=== PATIENT | female | born 1980 | race Caucasian/White ===

== ENCOUNTER 2017-07-29 18:47 | Emergency (ER) | payer SELFPAY ==
[2017-07-29 19:45] LABS: Urine Blood NEGATIVE (NEG); Urine Glucose NEGATIVE (NEG); Urine Protein NEGATIVE (NEG)
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
[2017-07-29 21:14] VITALS: BP 129/87; TEMP 97.6; O2SAT 100
== END 2017-07-29 20:40 | disposition home or self-care (01) ==
LOC: ER 18:47
DX: M54.2 Cervicalgia (principal); V49.49XA Driver injured in collision with other motor vehicles in traffic accident, initial encounter; Z88.6 Allergy status to analgesic agent
CPT/HCPCS: 72125; 81003; 81025; 99284

== ENCOUNTER 2024-05-04 12:32 | Emergency (ER) | payer OTHER ==
--- OUTSIDE RECORDS SUMMARY | 2024-05-04 12:38 | XMS REPORT | Continuity of Care Document ---
Author Name Unknown Address [address] [facility] [address] [place] [address] [facility] thconnect Address [address] [facility] [address] [place] [address] Care Team Providers Care Wringer And Setter Name Role Phone Mary Davey MD Primary Care Physician [phone] MARY DAVEY Attending Clinician Unavailable MARY DAVEY Attending Clinician Unavailable Mary Davey MD Attending Clinician [phone] Cory Garcia MD Attending Clinician [phone] [facility] Attending Clinician Unavailable ANABEL RICHEY Attending Clinician Unavailable Anabel Richey DNP Attending Clinician [phone] Serena Pulido Attending Clinician Unavailabl MARLEE Uribe Attending Clinician Unavailable MARLEE MEADOWS Attending Clinician Unavailable MARLEE MEADOWS Attending Clinician Unavailable Ultrasound, [facility] Attending Clinician UnavailMarlee Cotton MD Attending Clinician [phone] , [facility] Attending Clinician Unavailable ELHAM DIAS Attending Clinician UnaElham Mcarthur MD Attending Clinician + [phone], [facility] Attending Clinician Unavailable Doctor Unassigned, Badger Lee Attending Clinician U GIAN Ca Attending Clinician GIAN Santana Attending Clinician [facility] Hunter Attending Clinician Unavailable Peterson SIFUENTES, Lb Attending Clinician [phone] Hailey Pina MD Attending Clinician [phone] Cory Garcia MD Attending Clinician [phone] 1, [facility] Attending Clinician Unavailab Matt Mckeon MD Attending Clinician [phone] MATT LAU Attending Clinician Unavailable Pob, [facility] Main Attending Clinician UnavailISAI Moreno Attending Clinician Unavail able Only, [facility] Test Attending Clinician UnavailIsai Herrera DO Attending Clinician [phone] Jackeline RN, Imani Barron Attending Clinician Unavailable Whitley Huerta Attending Clinician [phone] WHITLEY TRUJILLO Attending Clinician Unavailable MARY DAVEY Admitting Clinician Unavailable Mary Davey MD Admitting Clinician [phone] MARY DAVEY Admitting Clinician Unavailable Payers Payer Name Policy Type Policy Number Effective Date Expirati on Date Source [place] [employer] [id number] 2022 00:00:00 Problems Condition Name Condition Details Condition Category Status Onset Date Resolution Date Last Treatment Date Treating Clinician Comments Source Liveborn infant, of [place] , born in hospital by delivery Liveborn , of [place] , born in hospital by delivery Disease Active 2023-03 0-15 00:00: 00 [facility] Status post tubal ligation Status post tubal ligation Disease Active 12-02 00:00: 00 [facility] Depression affecting in third trimester, antepartum Depression affecting in third trimester, antepartum Disease Active 12-02 00:00: 00 [facility] Anemia Anemia Disease Active 12-02 00:00: 00 [facility] Pelvic pain affecting in third trimester, antepartum Pelvic pain affecting in third trimester, antepartum Disease Active 12-02 00:00: 00 [facility] Polyhydram nios, antepartum , single or unspecifie d fetus Polyhydram nios, antepartum , single or unspecifie d fetus Disease Active 10-29 00:00: 00 Last Assessmen t & Plan: Formattin g of this note might be different from the original. Resolved on 10/2023 ultrasoun d [facility] Excessive growth affecting , antepartum , single or unspecifie d fetus Excessive growth affecting , antepartum , single or unspecifie d fetus Disease Active 10-29 00:00: 00 [facility] Advanced maternal age, primigravi da, antepartum Advanced maternal age, primigravi da, antepartum Disease Active 3-04 00:00: 00 [facility] 39 weeks gestation of 39 weeks gestation of Disease Active 4- 00:00: 00 [facility] Current mild episode of major depressive disorder without prior episode Current mild episode of major depressive disorder without prior episode Disease Active 2020-03 0-06 00:00: 00 [facility] High-risk in third trimester High-risk in third trimester Disease Active 2020-03 0-06 00:00: 00 [facility] 34 weeks gestation of 34 weeks gestation of Disease Resolve d 9-12 00:00: 00 2023-12-11 00:00:00 2023-12-11 13:45:29 [facility] Abdominal tightness Abdominal tightness Disease Resolve d 9-12 00:00: 00 2023-12-03 00:00:00 2023-12-03 12:21:08 [facility] Irregular contractio ns Irregular contractio ns Disease Resolve d 0 9-12 00:00: 00 2023-12-03 00:00:00 2023-12-03 12:21:51 [facility] Shortness of breath Shortness of breath Disease Resolve d 2-23 00:00: 00 2023-05-25 00:00:00 2023-05-25 15:50:37 [facility] Normal labor Normal labor Disease Active 2022-0 4-22 00:00: 00 2021-10-16 00:00:00 2021-10-16 11:34:07 [facility] Full-term premature rupture of membranes with onset of labor within 24 hours of rupture Full-term premature rupture of membranes with onset of labor within 24 hours of rupture Disease Resolve d 2021-0 4-22 00:00: 00 2021-10-16 00:00:00 2021-10-16 11:34:10 [facility] 38 weeks gestation of 38 weeks gestation of Disease Resolve d 2021-0 4-22 00:00: 00 2021-10-16 00:00:00 2021-10-16 11:34:11 [facility] Elevated BP without diagnosis of hypertensi on Elevated BP without diagnosis of hypertensi on Disease Resolve d 2021-0 4-22 00:00: 00 2021-10-16 00:00:00 2021-10-16 11:34:13 [facility] Liveborn , of cas[place] , born in hospital by vaginal delivery Liveborn infant, of [place] , born in hospital by vaginal delivery Disease Resolve d 2021-0 4-22 00:00: 00 2021-10-16 00:00:00 2021-10-16 11:34:14 [facility] Anemia of mother in , antepartum Anemia of mother in , antepartum Disease Resolve d 2021-0 3-21 00:00: 00 2021-10-16 00:00:00 2021-10-16 11:34:06 [facility] History of macrosomia in in prior , currently History of macrosomia in in prior , currently Disease Resolve d 2020-1 0-06 00:00: 00 2021-10-16 00:00:00 2021-10-16 11:34:03 [facility] Allergies, Adverse Reactions, Alerts Allergy Name Allergy Type Status Severity Reaction(s) Onset Date Inactive Date Treating Clinician Comments Source NO KNOWN ALLERGIE S Drug Class Active [facility] Social History Social Habit Start Date Stop Date Quantity Comments Source ASSERTION 2023-04-18 00:00:00 [facility] History SDOH Alcohol Frequency [facility] History SDOH Alcohol Std Drinks [facility] History SDOH Alcohol Binge [facility] History of tobacco use Current smoker [facility] Sexual orientation [facility] Alcoholic beverage intake 2024-01-13 00:00:00 2024-01-13 00:00:00 Ex-drinker (finding) [facility] History of Social function 2023-11-13 00:00:00 2023-11-13 00:00:00 [facility] Tobacco use and exposure 2023-05-25 00:00:00 2023-05-25 00:00:00 Smokeless tobacco non-user [facility] Alcohol intake 2023-05-25 00:00:00 2023-05-25 00:00:00 Ex-drinker (finding) [facility] Exposure to SARS-CoV-2 (event) 2021-10-06 00:00:00 2021-10-16 11:16:00 Not sure [facility] Alcohol Comment 2020-12-25 00:00:00 2020-12-25 00:00:00 history of rehab [facility] Sex assigned at 1980 00:00:00 1980 00:00:00 [facility] Smoking Status Start Date Stop Date Source Ex-smoker 2023-05-25 00:00:00 2023-05-25 00:00:00 [facility] Medications Ordered Medication Name Filled Medication Name Start Date Stop Date Current Medication? Ordering Clinician Indication Dosage Frequency Signature (SIG) Comments Components Source ibuprofen (IBU) tablet 600 mg 2023-03 05:00: 00 Yes 600mg [facility] docusate (COLACE) capsule 200 mg 2023-03 0 14:00: 00 Yes 200mg 200 mg, Oral, DAILY, First dose on Thu01/05/24 at 0900, Until Discontinu ed, Routine [facility] citalopram (CELEXA) tablet 20 mg 2023-03 14:00: 00 Yes 20mg 20 mg, Oral, DAILY, First dose on Thu01/05/24 at 0900, Until Discontinu ed, Routine [facility] ketorolac (TORADOL) injection 30 mg 2023-03 05:00: 00 01-05 04:59 :00 No 30mg 30 mg, Slow IV Push, Q6H ABX, 4 doses, First dose on Thu01/05/24 at 0000, Last dose on Thu01/05/24 at 1800, Routine [facility] diphenhydrA MINE (BENADRYL) tablet 25 mg 2023-03 03:15: 00 01-04 04:03 :00 No 25mg 25 mg, Oral, ONCE, 1 dose, On Thu01/04/24 at 2215, Routine [facility] vitamin w/FA tablet 2023-03 00:00: 00 Yes [id number] 1{tbl} Take 1 tablet by mouth in the morning. [facility] docusate 100 mg capsule 2023-03 00:00: 00 Yes [id number] 200mg Take 2 capsules by mouth once daily as needed for Constipati on. [facility] ferrous sulfate 325 mg (65 mg iron) tablet 2023-03 00:00: 00 Yes [id number] 325mg Take 1 tablet by mouth in the morning. [facility] ibuprofen 800 mg tablet 2023-03 00:00: 00 Yes [id number] 800mg Take 1 tablet by mouth every 8 (eight) hours as needed (pain). Take with food or milk. [facility] acetaminoph en 500 mg tablet 2023-03 00:00: 00 Yes [id number] 1000mg Take 2 tablets by mouth every 8 (eight) hours as needed for Pain. [facility] oxyCODONE 5 mg immediate release tablet 2023-03 00:00: 00 01-12 04:59 :00 No [id number] 5mg Take 1 tablet by mouth every 6 (six) hours as needed (pain) for up to 7 days. Indication s: acute pain [facility] gabapentin 300 mg capsule 2023-03 00:00: 00 2024- 10-21 04:59 :00 No [id number] 300mg Take 1 capsule by mouth in the morning and 1 capsule at noon and 1 capsule in the evening. Do all this for 5 days. [facility] acetaminoph en (TYLENOL) tablet 1,000 mg 2023-03 21:00: 00 Yes 1000mg 1,000 mg, Oral, Q8H ABX, First dose on Thu01/04/24 at 1600, Until Discontinu ed, Routine [facility] gabapentin (NEURONTIN) capsule 300 mg 2023-03 19:00: 00 Yes 300mg 300 mg, Oral, TID, First dose on Thu01/04/24 at 1400, Until Discontinu ed, Routine [facility] simethicone (GAS RELIEF (SIMETHICON E)) chewable tablet 160 mg 2023-03 19:00: 00 Yes 160mg 160 mg, Oral, TID, First dose on Thu01/04/24 at 1400, Until Discontinu ed, Routine [facility] lactated ringers IV infusion 1,000 mL 2023-03 18:30: 00 01-03 19:55 :03 No 1000mL at 125 mL/hr, 1,000 mL, IV Infusion, ONCE, 1 dose, On Thu01/04/24 at 1330, Routine [facility] rho(D) immune globulin (RHOPHYLAC) injection 300 mcg 2023-03 18:16: 31 Yes 300ug [facility] oxyCODONE immediate release tablet 5 mg 2023-03 18:16: 26 Yes 5mg [facility] diphenhydrA MINE (BENADRYL) injection 25 mg 2023-03 18:16: 26 Yes 25mg [facility] diphenhydrA MINE (BENADRYL) tablet 25 mg 2023-03 18:16: 26 Yes 25mg [facility] ondansetron (ZOFRAN (PF)) injection 4 mg 2023-03 18:16: 26 Yes 4mg [facility] bisacodyL (DULCOLAX) suppository 10 mg 2023-03 18:16: 26 Yes 10mg [facility] magnesium hydroxide (MILK OF MAGNESIA) 400 mg/5 mL suspension 30 mL 2023-03 18:16: 26 Yes 30mL [facility] lactated ringers IV infusion 1,000 mL 2023-03 18:16: 26 Yes 1000mL [facility] naloxone (NARCAN) injection 0.4 mg 2023-03 18:16: 12 01-05 18:15 :12 No .4mg 0.4 mg, Slow IV Push, PRN - SEE INSTRUCTIO NS, Starting on Thu01/04/24 at 1316, Until Thu01/06/24 at 1315, Routine, Sedation/R espiratory Depression , Analgesia recovery, PACU [facility] diphenhydrA MINE (BENADRYL) injection 25 mg 2023-03 18:16: 12 01-04 18:15 :12 No 25mg 25 mg, Slow IV Push, Q4HPRN, Starting on Thu01/04/24 at 1316, Until Thu01/05/24 at 1315, Routine, Itching, PACU [facility] sodium chloride 0.9 % irrigation solution 2023-03 14:40: 00 Yes PRN, Starting on Thu01/04/24 at 0940, Until Discontinu ed, Intra-op [facility] oxytocin (PITOCIN) 30 units in NS 500 mL IV infusion 2023-03 14:00: 23 01-03 18:14 :49 No 300mL/h 300 mL/hr, IV Infusion, SEE-INSTRU CTIONS, Starting on Thu01/04/24 at 0900, Start at 300 mL/hr for 1 hr then 150 mL/hr for 1 hr. For post delivery uterotonic . [facility] mupirocin (BACTROBAN OINT) 2 % oinintment 2023-03 13:32: 00 01-03 18:14 :49 No [facility] oxytocin (PITOCIN) 30 units in NS 500 mL IV infusion 2023-03 02:12: 46 01-03 18:14 :49 No 2mU/min at 2-40 mL/hr, IV Infusion, TITRATE, Starting on 01/03/24 at 2112, Until Thu01/04/24 at 1314, ELEANOR [facility] D5W-LR IV infusion 1,000 mL 2023-0314 02:12: 46 01-03 18:14 :49 No 1000mL at 1-125 mL/hr, IV Infusion, TITRATE, Starting on 01/03/24 at 2112, Until 01/04/24 at 1314, Routine [facility] ondansetron (ZOFRAN) 4 mg tablet 12-10 00:00: 00 01-04 00:00 :00 No [id number] 4mg Take 1 tablet by mouth every 8 (eight) hours as needed for Nausea and Vomiting (N/V). [facility] lactated ringers IV infusion 1,000 mL 12-02 18:00: 00 12-02 17:38 :00 No 1000mL at 999 mL/hr, 1,000 mL, Intravenou s, ONCE, 1 dose, On [facility] 12/03/23 at 1300, Routine [facility] acetaminoph en (TYLENOL) tablet 1,000 mg 12-02 18:00: 00 12-02 17:44 :00 No 1000mg 1,000 mg, Oral, ONCE, 1 dose, On [facility] 12/03/23 at 1300, Routine [facility] ferrous sulfate 325 mg (65 mg iron) tablet 10-07 00:00: 00 01-04 00:00 :00 No [id number] 325mg Take 1 tablet by mouth in the morning and 1 tablet in the evening. [facility] citalopram (CELEXA) 20 mg tablet 09-20 13:47: 52 09-20 00:00 :00 No 20mg Take 1 tablet by mouth in the morning. [facility] citalopram (CELEXA) 20 mg tablet 09-20 00:00: 00 01-04 00:00 :00 No [id number] 20mg Take 1 tablet by mouth in the morning. [facility] aspirin 81 mg EC tablet -08 00:00: 00 01-04 00:00 :00 No [id number] 81mg Take 1 tablet by mouth in the morning. [facility] citalopram (CELEXA) 20 mg tablet 3-04 14:20: 49 Yes 20mg Take 1 tablet by mouth in the morning. [facility] NUVARING 0.12-0.015 mg/24 hr vaginal insert 7- 00:00: 00 05-24 00:00 :00 No [id number] 1{each} Insert 1 Each into vagina once every month. Insert vaginally and leave in place for 3 consecutiv e weeks, then remove for 1 week. [facility] citalopram (CELEXA) 20 mg tablet -24 13:50: 40 Yes 20mg Take 20 mg by mouth daily. [facility] ascorbic acid, vitamin C, 500 mg tablet -24 00:00: 00 10-07 00:00 :00 No [id number] 102 500mg Take 1 tablet by mouth 2 (two) times daily. [facility] ibuprofen 600 mg tablet 4-24 00:00: 00 05-24 00:00 :00 No [id number] 102 600mg Take 1 tablet by mouth every 6 (six) hours as needed (Pain). Take with food or milk. [facility] ferrous sulfate 325 mg (65 mg iron) tablet 2-24 00:00: 00 10-07 00:00 :00 No [id number] 325mg Take 1 tablet by mouth 2 (two) times daily. [facility] PNV 102-iron-fo late-dha (VITAFOL FE PLUS) 90 mg iron- 1 mg-200 mg Cap 2020-03 0-06 00:00: 00 Yes [id number] Take 1 TAB-CAP/M2 by mouth daily. [facility] PNV 102-iron-fo late-dha (VITAFOL FE PLUS) 90 mg iron- 1 mg-200 mg Cap 2020-03 0-06 00:00: 00 05-24 00:00 :00 No [id number] Take 1 TAB-CAP/M2 by mouth daily. [facility] Immunizations Ordered Immunization Name Filled Immunization Name Date Status Comments Source RSV, Bivalent Protein Subunit RSVprdF 2023-12-11 00:00:00 Completed [facility] RSV, Bivalent Protein Subunit RSVprdF 2023-12-11 00:00:00 Completed [facility] TDAP 2023-10-30 00:00:00 Completed [facility] TDAP 2023-10-30 00:00:00 Completed [facility] Influenza Virus Vaccine Quad IM, Preserv and ABX Free 6 MO-64 YRS (FLUCELVAX) 2023-05-25 00:00:00 Completed [facility] Influenza Virus Vaccine Quad IM, Preserv and ABX Free 6 MO-64 YRS (FLUCELVAX) 2023-05-25 00:00:00 Completed [facility] TDAP 2021-06-10 00:00:00 Completed [facility] TDAP 2021-06-10 00:00:00 Completed [facility] TDAP 2021-06-10 00:00:00 Completed [facility] TDAP 2021-06-10 00:00:00 Completed [facility] TDAP Unknown Completed [facility] TDAP Unknown Completed [facility] Influenza Virus Vaccine Quad IM, Preserv and ABX Free 6 MO-64 YRS (FLUCELVAX) Unknown Completed [facility] TDAP Unknown Completed [facility] Influenza Virus Vaccine Quad IM, Preserv and ABX Free 6 MO-64 YRS (FLUCELVAX) Unknown Completed [facility] TDAP Unknown Completed [facility] Influenza Virus Vaccine Quad IM, Preserv and ABX Free 6 MO-64 YRS (FLUCELVAX) Unknown Completed [facility] TDAP Unknown Completed [facility] Influenza Virus Vaccine Quad IM, Preserv and ABX Free 6 MO-64 YRS (FLUCELVAX) Unknown Completed [facility] TDAP Unknown Completed [facility] Influenza Virus Vaccine Quad IM, Preserv and ABX Free 6 MO-64 YRS (FLUCELVAX) Unknown Completed [facility] TDAP Unknown Completed [facility] Influenza Virus Vaccine Quad IM, Preserv and ABX Free 6 MO-64 YRS (FLUCELVAX) Unknown Completed [facility] TDAP Unknown Completed [facility] Influenza Virus Vaccine Quad IM, Preserv and ABX Free 6 MO-64 YRS (FLUCELVAX) Unknown Completed [facility] RSV, Bivalent Protein Subunit RSVprdF Unknown Completed [facility] TDAP Unknown Completed [facility] Influenza Virus Vaccine Quad IM, Preserv and ABX Free 6 MO-64 YRS (FLUCELVAX) Unknown Completed [facility] RSV, Bivalent Protein Subunit RSVprdF Unknown Completed [facility] TDAP Unknown Completed [facility] TDAP Unknown Completed [facility] TDAP Unknown Completed [facility] Influenza Virus Vaccine Quad IM, Preserv and ABX Free 6 MO-64 YRS (FLUCELVAX) Unknown Completed [facility] TDAP Unknown Completed [facility] Influenza Virus Vaccine Quad IM, Preserv and ABX Free 6 MO-64 YRS (FLUCELVAX) Unknown Completed [facility] TDAP Unknown Completed [facility] Influenza Virus Vaccine Quad IM, Preserv and ABX Free 6 MO-64 YRS (FLUCELVAX) Unknown Completed [facility] TDAP Unknown Completed [facility] Influenza Virus Vaccine Quad IM, Preserv and ABX Free 6 MO-64 YRS (FLUCELVAX) Unknown Completed [facility] TDAP Unknown Completed [facility] Influenza Virus Vaccine Quad IM, Preserv and ABX Free 6 MO-64 YRS (FLUCELVAX) Unknown Completed [facility] TDAP Unknown Completed [facility] Influenza Virus Vaccine Quad IM, Preserv and ABX Free 6 MO-64 YRS (FLUCELVAX) Unknown Completed [facility] TDAP Unknown Completed [facility] Influenza Virus Vaccine Quad IM, Preserv and ABX Free 6 MO-64 YRS (FLUCELVAX) Unknown Completed [facility] TDAP Unknown Completed [facility] Influenza Virus Vaccine Quad IM, Preserv and ABX Free 6 MO-64 YRS (FLUCELVAX) Unknown Completed [facility] TDAP Unknown Completed [facility] Influenza Virus Vaccine Quad IM, Preserv and ABX Free 6 MO-64 YRS (FLUCELVAX) Unknown Completed [facility] TDAP Unknown Completed [facility] Influenza Virus Vaccine Quad IM, Preserv and ABX Free 6 MO-64 YRS (FLUCELVAX) Unknown Completed [facility] TDAP Unknown Completed [facility] Influenza Virus Vaccine Quad IM, Preserv and ABX Free 6 MO-64 YRS (FLUCELVAX) Unknown Completed [facility] Influenza Virus Vaccine Quad IM, Preserv and ABX Free 6 MO-64 YRS (FLUCELVAX) Unknown Completed [facility] Vital Signs Vital Name Observation Time Observation Value Comments S ource Systolic blood pressure 2024-01-13 16:04:00 124 mm[Hg] [facility] Diastolic blood pressure 2024-01-13 16:04:00 84 mm[Hg] [facility] Heart rate 2024-01-13 16:04:00 80 /min [facility] Body temperature 2024-01-13 16:04:00 36.39 Erika [facility] Body height 2024-01-13 16:04:00 172.7 cm [facility] Body weight 2024-01-13 16:04:00 70.126 kg [facility] BMI 2024-01-13 16:04:00 23.51 kg/m2 [facility] Systolic blood pressure 2024-01-05 16:59:00 118 mm[Hg] [facility] Diastolic blood pressure 2024-01-05 16:59:00 72 mm[Hg] [facility] Heart rate 2024-01-05 16:59:00 79 /min [facility] Body temperature 2024-01-05 16:59:00 36.67 Erika [facility] Respiratory rate 2024-01-05 16:59:00 18 /min [facility] Oxygen saturation in Arterial blood by Pulse oximetry 2024-01-05 11:47:00 98 /min [facility] Body height 2024-01-04 02:28:00 172.7 cm [facility] Body weight 2024-01-04 02:28:00 80.287 kg [facility] BMI 2024-01-04 02:28:00 26.91 kg/m2 [facility] Systolic blood pressure 2024-01-05 04:58:00 125 mm[Hg] [facility] Diastolic blood pressure 2024-01-05 04:58:00 84 mm[Hg] [facility] Heart rate 2024-01-05 04:58:00 100 /min [facility] Body temperature 2024-01-05 04:58:00 37.06 Erika [facility] Respiratory rate 2024-01-05 04:58:00 18 /min [facility] Oxygen saturation in Arterial blood by Pulse oximetry 2024-01-05 04:58:00 94 /min [facility] Body height 2024-01-04 02:28:00 172.7 cm [facility] Body weight 2024-01-04 02:28:00 80.287 kg [facility] BMI 2024-01-04 02:28:00 26.91 kg/m2 [facility] Systolic blood pressure 2023-12-28 14:18:00 119 mm[Hg] [facility] Diastolic blood pressure 2023-12-28 14:18:00 74 mm[Hg] [facility] Heart rate 2023-12-28 14:18:00 87 /[facility] 2023-12-28 14:18:00 18 /min [facility] Body height 2023-12-28 14:18:00 172.7 cm [facility] Body weight 2023-12-28 14:18:00 80.74 kg [facility] BMI 2023-12-28 14:18:00 27.06 kg/m2 [facility] Systolic blood pressure 2023-12-21 16:01:00 109 mm[Hg] [facility] Diastolic blood pressure 2023-12-21 16:01:00 74 mm[Hg] [facility] Heart rate 2023-12-21 16:01:00 102 /min [facility] Respiratory rate 2023-12-21 16:01:00 18 /min [facility] Body height 2023-12-21 16:01:00 172.7 cm [facility] Body weight 2023-12-21 16:01:00 80.287 kg [facility] BMI 2023-12-21 16:01:00 26.91 kg/m2 [facility] Systolic blood pressure 2023-12-14 16:20:00 130 mm[Hg] [facility] Diastolic blood pressure 2023-12-14 16:20:00 88 mm[Hg] [facility] Heart rate 2023-12-14 16:20:00 86 /min [facility] Body temperature 2023-12-14 16:20:00 36.67 Erika [facility] Respiratory rate 2023-12-14 16:20:00 18 /min [facility] Body height 2023-12-14 16:20:00 172.7 cm [facility] Body weight 2023-12-14 16:20:00 81.375 kg [facility] BMI 2023-12-14 16:20:00 27.28 kg/m2 [facility] Oxygen saturation in Arterial blood by Pulse oximetry 2023-12-14 16:20:00 100 /min [facility] Systolic blood pressure 2023-12-11 16:56:00 120 mm[Hg] [facility] Diastolic blood pressure 2023-12-11 16:56:00 72 mm[Hg] [facility] Heart rate 2023-12-11 16:56:00 100 /min [facility] Body temperature 2023-12-11 16:56:00 36.44 Erika [facility] Body height 2023-12-11 16:56:00 172.7 cm [facility] Body weight 2023-12-11 16:56:00 80.468 kg [facility] BMI 2023-12-11 16:56:00 26.97 kg/m2 [facility] Heart rate 2023-12-03 18:00:00 76 /min Unive [facility] Oxygen saturation in Arterial blood by Pulse oximetry 2023-12-03 18:00:00 99 /min [facility] Systolic blood pressure 2023-12-03 15:54:00 110 mm[Hg] [facility] Diastolic blood pressure 2023-12-03 15:54:00 75 mm[Hg] [facility] Respiratory rate 2023-12-03 15:54:00 18 /min [facility] Body height 2023-12-03 15:54:00 172.7 cm [facility] Body weight 2023-12-03 15:54:00 79.833 kg [facility] BMI 2023-12-03 15:54:00 26.76 kg/m2 [facility] Systolic blood pressure 2023-11-27 18:07:00 118 mm[Hg] [facility] Diastolic blood pressure 2023-11-27 18:07:00 70 mm[Hg] [facility] Heart rate 2023-11-27 18:07:00 95 /min Unive [facility] Body temperature 2023-11-27 18:07:00 36.44 Erika [facility] Body weight 2023-11-27 18:07:00 80.196 kg [facility] BMI 2023-11-27 18:07:00 26.88 kg/m2 [facility] Systolic blood pressure 2023-11-13 15:18:00 99 mm[Hg] [facility] Diastolic blood pressure 2023-11-13 15:18:00 68 mm[Hg] [facility] Heart rate 2023-11-13 15:18:00 97 /min Unive [facility] Body temperature 2023-11-13 15:18:00 36.72 Erika [facility] Respiratory rate 2023-11-13 15:18:00 18 /min [facility] Body height 2023-11-13 15:18:00 172.7 cm [facility] Body weight 2023-11-13 15:18:00 79.379 kg [facility] BMI 2023-11-13 15:18:00 26.61 kg/m2 [facility] Systolic blood pressure 2023-10-30 18:18:00 124 mm[Hg] [facility] Diastolic blood pressure 2023-10-30 18:18:00 76 mm[Hg] [facility] Heart rate 2023-10-30 18:18:00 106 /min [facility] 2023-10-30 18:18:00 18 /min [facility] Body weight 2023-10-30 18:18:00 80.105 kg [facility] BMI 2023-10-30 18:18:00 26.85 kg/m2 [facility] Systolic blood pressure 2023-09-21 17:58:00 99 mm[Hg] [facility] Diastolic blood pressure 2023-09-21 17:58:00 66 mm[Hg] [facility] Heart rate 2023-09-21 17:58:00 101 /min Unive [facility] Respiratory rate 2023-09-21 17:58:00 18 /min [facility] Body weight 2023-09-21 17:58:00 79.47 kg [facility] BMI 2023-09-21 17:58:00 26.64 kg/m2 [facility] Systolic blood pressure 2023-05-25 20:06:00 121 mm[Hg] [facility] Diastolic blood pressure 2023-05-25 20:06:00 79 mm[Hg] [facility] Heart rate 2023-05-25 20:06:00 90 /min Unive [facility] Body temperature 2023-05-25 20:06:00 36.89 Erika [facility] Respiratory rate 2023-05-25 20:06:00 18 /min [facility] Body height 2023-05-25 20:06:00 172.7 cm [facility] Body weight 2023-05-25 20:06:00 73.936 kg [facility] BMI 2023-05-25 20:06:00 24.78 kg/m2 [facility] Systolic blood pressure 2021-10-16 16:24:00 121 mm[Hg] [facility] Diastolic blood pressure 2021-10-16 16:24:00 80 mm[Hg] [facility] Heart rate 2021-10-16 16:24:00 87 /min [facility] Body temperature 2021-10-16 16:24:00 36.89 Erika [facility] Respiratory rate 2021-10-16 16:24:00 17 /min [facility] Body height 2021-10-16 16:24:00 167.6 cm [facility] Body weight 2021-10-16 16:24:00 72.757 kg [facility] BMI 2021-10-16 16:24:00 25.89 kg/m2 [facility] Procedures Procedure Date / Time Performed Performing Clinician Source CBC WITH DIFF 2024-01-05 11:34:00 Mary Davey [facility] CBC WITH DIFF 2024-01-05 11:34:00 Mary Davey [facility] PREPARE PACKED RBC 2024-01-05 04:44:48 Mary Davey [facility] PREPARE PACKED RBC 2024-01-05 04:44:48 Mary Davey [facility] CBC WITHOUT DIFF 2024-01-05 01:58:00 Mary Davey [facility] CBC WITHOUT DIFF 2024-01-05 01:58:00 Mary Davey [facility] SURGICAL PATHOLOGY EXAM 2024-01-04 14:31:00 Mary Davey [facility] CBC WITH DIFF 2024-01-04 03:12:00 Mary Davey [facility] HEPATITIS B SURFACE ANTIGEN 2024-01-04 03:12:00 Mary Davey [facility] HB ABO GROUPING 2024-01-04 03:12:00 Mary Davey [facility] RHO (D) IMMUNE GLOBULIN 2024-01-04 03:12:00 Mary Davey [facility] ADC OR TARA ONLY - RPR 2024-01-04 03:12[facility]/2 [facility]-AB WITH REFLEX 2024-01-04 03:12:00 Davey [facility] CBC WITH DIFF 2024-01-04 [facility]TIGEN 2024-01-04 03:12:00 Davey [facility] HB ABO GROUPING 2024-01-04 03:12:00 [facility] RHO (D) IMMUNE GLOBULIN 2024-01-04 03:12:00 Davey [facility] ADC OR TARA ONLY - RPR 2024-01-04 03:12:00 Davey [facility] HIV 1/2 AG-AB WITH REFLEX 2024-01-04 03:12:00 Davey [facility] NON-STRESS TEST 2023-12-28 17:26:25 [facility] POCT URINALYSIS W/O SPECIFIC GRAVITY 2023-12-28 00:00:00 Davey [facility] NON-STRESS TEST 2023-12-21 18:29:36 DaveyMary [facility] NON-STRESS TEST 2023-12-14 19:10:31 Davey[facility] POCT URINALYSIS W/O SPECIFIC GRAVITY 2023-12-14 00:00:00 Davey [facility] >14 WEEKS US LIMITED 2023-12-11 22:58:37 Davey [facility] RSV, BIVALENT, PROTEIN SUBUNIT RSVPREF, DILUENT RECONSTITUTED, 0.5 ML, PF, (ABRYSVO) 2023-12-11 17:27:46 Davey [facility] POCT URINALYSIS W/O SPECIFIC GRAVITY 2023-12-11 00:00:00 [facility] URINALYSIS 2023-12-03 17:14:00 Radha Menon [facility] ADC CLC OR LCC ONLY - WET PREP 2023-12-03 17:14:00 Radha Menon [facility] POCT URINALYSIS W/O SPECIFIC GRAVITY 2023-11-27 00:00:00 Anabel Richey [facility] SECOND AND THIRD TRIMESTER ULTRASOUND 2023-11-26 21:19:00 Mary Daevy [facility] POCT URINALYSIS W/O SPECIFIC GRAVITY 2023-11-13 00:00:00 Mary Davey [facility] SECOND AND THIRD TRIMESTER ULTRASOUND 2023-11-02 15:24:00 [facility] TDAP VACCINE, >11 YRS, IM 2023-10-30 19:07:52 Mary Davey [facility] POCT URINALYSIS W/O SPECIFIC GRAVITY 2023-10-30 18:21:00 Mary Davey [facility] 1 HR GLUCOSE TOLERANCE TEST 2023-10-28 14:13:00 Adum, Hailey Rodríguez [facility] GLUCOSE FASTING 2023-10-28 13:13:00 Adum, Hailey Hall [facility] SECOND AND THIRD TRIMESTER ULTRASOUND 2023-10-26 19:16:00 Mary Davey [facility] SECOND AND THIRD TRIMESTER ULTRASOUND 2023-10-26 19:08:00 Petar Mary [facility] POCT URINALYSIS W/O SPECIFIC GRAVITY 2023-09-21 18:02:00 Mary Davey [facility] US OB TRANSVAGINAL 2023-05-26 01:48:49 Mary Davey [facility] FLU VACC ([phone]), 6 MO-64 YRS, .5ML, IM, QUAD (FLUCELVAX) 2023-05-25 21:50:46 Mary Davey [facility] ASSIGNMENT OF BENEFITS 2023-05-25 19:44:20 Docto r Unassigned, Badger Lee [facility] POCT TEST 2021-10-16 16:34:00 Joelle Winkler [facility] CONSENT FOR CONTRACEPTION 2021-10-16 05:01:00 Doctor Unassigned, Badger Lee [facility] SECTION Davey, Mary Cam [facility] TUBAL LIGATION Mary Davey Gregory o f [facility] SECTION Mary Davey [facility] TUBAL LIGATION Petar, Mary [facility] o f [facility] Encounters Start Date/Time End Date/Time Encounter Type Admission Type Attending [facility] Care Facility Care Department Encounter ID Source 2023-12-28 10:26:21 Outpatient P MARY DAVEY VIEN [facility] [id number] [facility] 2023-12-03 14:42:21 Outpatient P [facility] [id number] [facility] 2024-05-03 10:08:37 2024-05-03 10:08:37 Outpatient [facility] [id number] Y[address] Enrike 2024-04-06 00:00:00 2024-04-07 13:25:26 Telephone Mary Davey [facility] 1.2.840.114 350.1.13.10 4.2.7.2.686 [id number] 134 [id number] [facility] 2024-02-15 11:00:00 2024-02-15 11:00:00 Outpatient R MARY DAVEY VIEN [facility] [id number] [facility] 2024-01-13 11:15:00 2024-01-13 11:30:00 Routine Visit Mary Davey [facility] 1.2.840.114 350.1.13.10 4.2.7.2.686 [id number] 134 [id number] [facility] 2024-01-13 11:15:00 2024-01-13 11:15:00 Outpatient R MARY DAVEY VIEN [facility] [id number] [facility] 2024-01-03 21:11:00 2024-01-05 16:00:00 Inpatient P MARY DAVEY VIEN [facility] [id number] [facility] 2024-01-03 21:11:00 2024-01-05 16:00:00 Hospital Encounter Mary Davey [facility] 1.2.840.114 350.1.13.10 4.2.7.2.686 [id number] [facility] 2024-01-04 00:00:00 2024-01-04 00:00:00 Surgery Mary Davey [facility] 1.2.840.114 350.1.13.10 4.2.7.2.686 [id number] [facility] 2024-01-03 22:50:24 2024-01-03 22:50:24 Anesthesia Event Cory Garcia [facility] 1.2.840.114 350.1.13.10 4.2.7.2.686 [id number] [facility] 2023-12-28 09:00:00 2023-12-28 10:04:27 Outpatient R MARY DAVEY PETAR MARY [facility] [id number] [facility] 2023-12-28 09:00:00 2023-12-28 10:04:27 [facility] NAL BUILDING 1..840.114 350.1.13.10 4.2.7.2.686 [id number] 134 [id number] [facility] 2023-12-25 14:15:00 2023-12-25 14:15:00 Outpatient P [facility] [id number] [facility] 2023-12-21 11:00:00 2023-12-21 12:13:17 Outpatient R PTEAR MARY MARY DAVEY [facility] [id number] [facility] 2023-12-21 11:00:00 2023-12-21 12:13:17 Routine Visit Room, [facility] Digna Davey [facility], [facility] PROFESSIO NAL BUILDING 1.2.840.114 350.1.13.10 4.2.7.2.686 [id number] 134 [id number] [facility] 2023-12-14 11:00:00 2023-12-14 12:09:29 Outpatient R MARY DAVEY VIEN [facility] [id number] [facility] 2023-12-14 11:00:00 2023-12-14 12:09:29 Routine Visit Room, [facility] Mary Davey [place] Room, [facility] PROFESSIO NAL BUILDING 1.2.840.114 350.1.13.10 4.2.7.2.686 [id number] 134 [id number] [facility] 2023-12-11 11:30:00 2023-12-11 12:15:05 Outpatient R [facility]AVEY [facility] [id number] [facility] 2023-12-11 11:30:00 2023-12-11 12:15:05 Routine Visit Mary Davey [facility] PROFESSIO NAL BUILDING 1.2.840.114 350.1.13.10 4.2.7.2.686 [id number] 134 [id number] [facility] 2023-12-03 10:33:00 2023-12-03 14:40:00 Outpatient P MARY DAVEY [facility] [id number] [facility] 2023-12-03 10:33:00 2023-12-03 14:40:00 Hospital Encounter Mary Davey [facility] 1.2840.114 350.1.13.10 4.2.7.2.686 [id number] [facility] 2023-12-03 00:00:00 2023-12-03 09:43:46 Telephone Mary Davey [facility] PROFESSIO NAL BUILDING 1.2.840.114 350.1.13.10 4.2.7.2.686 [id number] 134 [id number] [facility] 2023-11-27 13:15:00 2023-11-27 13:29:22 Outpatient R ANABEL RICHEY [facility] [id number] [facility] 2023-11-27 13:15:00 2023-11-27 13:29:22 Routine Visit Anabel Richey [facility] 1.2.840.114 350.1.13.10 4.2.7.2.686 [id number] 134 [id number] [facility] 2023-11-27 00:00:00 2023-11-27 11:37:40 Telephone Serena Pulido Swetha [facility] 1..840.114 350.1.13.10 4.2.7.2.686 [id number] [facility] 2023-11-26 15:30:00 2023-11-26 17:25:32 Outpatient [facility]AN[id number] 2023-11-26 15:30:00 2023-11-26 17:25:32 Shoer Visit Ultrasound, Nancy Amoseeta [facility] SECURITIES [facility] 1..840.114 350.1.13.10 4.2.7.2.686 [id number] [facility] 2023-11-13 10:45:00 2023-11-13 10:45:00 Routine Visit Mary Davey [facility] 1..840.114 350.1.13.10 4.2.7.2.686 [id number] 134 [id number] [facility] 2023-11-13 10:45:00 2023-11-13 10:39:10 Outpatient R MARY DAVEY VIEN [facility] [id number] [facility] 2023-11-03 00:00:00 2023-11-03 11:07:23 Case Management Anabel Richey [facility] BUILDING 1..840.114 350.1.13.10 4.2.7.2.686 [id number] 134 [id number] [facility] 2023-11-02 10:00:00 2023-11-02 12:27:16 Outpatient R MARLEE MEADOWS, MARLEE MEADOWS [facility] [place] [id number] [facility] 2023-11-02 10:00:00 2023-11-02 12:27:16 Shoer [facility] 1..840.114 350.1.13.10 4.2.7.2.686 [id number] [facility] 2023-10-30 13:15:00 2023-10-30 14:04:08 Outpatient R MARY DAVEY VIEN [facility] [id number] [facility] 2023-10-30 13:15:00 2023-10-30 14:04:08 Routine Visit Mary Davey [facility] BUILDING 1..840.114 350.1.13.10 4.2.7.2.686 [id number] 134 [id number] [facility] 2023-10-28 08:15:00 2023-10-28 11:25:02 Outpatient R MARY DAVEY VIEN [facility] [id number] [facility] 2023-10-28 08:15:00 2023-10-28 08:30:00 Shoer Visit 2, Adc Lab Mary Davey 2, Adc Lab [facility] NAL BUILDING 1..840.114 350.1.13.10 4.2.7.2.686 [id number] [facility] 2023-10-27 00:00:00 2023-10-27 12:40:37 Telephone Mary Davey [facility] BUILDING 1.2.840.114 350.1.13.10 4.2.7.2.686 [id number] 134 [id number] [facility] 2023-10-26 13:00:00 2023-10-26 17:01:25 Outpatient P ELHAM MEJIA [facility] [id number] [facility] 2023-10-26 13:00:00 2023-10-26 17:01:25 Shoer Visit Ultrasound, Elham Malave [facility] SECURITIES ATTOR[facility] 1..840.114 350.1.13.10 4.2.7.2.686 [id number] [facility] 2023-10-19 16:15:00 2023-10-19 16:15:00 Outpatient R MARY DAVEY [facility] [id number] [facility] 2023-10-08 00:00:00 2023-10-08 06:16:26 Case Management Mary Davey [facility] 1.2.840.114 350.1.13.10 4.2.7.2.686 [id number] 134 [id number] [facility] 2023-10-07 13:00:00 2023-10-07 13:15:00 Shoer Visit 2, Adc Lab Mary Davey [facility] BUILDING 1.2.840.114 350.1.13.10 4.2.7.2.686 [id number] [facility] 2023-10-07 13:00:00 2023-10-07 13:00:00 Outpatient R MARY DAVEY [facility] [id number] [facility] 2023-10-07 00:00:00 2023-10-07 10:47:27 [facility] BU[facility] 1.2.840.114 350.1.13.10 4.2.7.2.686 [id number] 134 [id number] [facility] 2023-09-22 13:00:00 2023-09-22 13:00:00 Outpatient R ANABEL RICHEY [facility] [id number] [facility] 2023-09-21 13:15:00 2023-09-21 13:33:42 Outpatient R TATIANNA DAVEYLIZZ DAVEY [facility] [id number] [facility] 2023-09-21 13:15:00 2023-09-21 13:33:42 Routine Visit Mary Davey [facility] 1.2.840.114 350.1.13.10 4.2.7.2.686 [id number] 134 [id number] [facility] 2023-07-22 11:15:00 2023-07-22 11:15:00 Outpatient R TATIANNA DAVEYEN [facility] [id number] [facility] 2023-07-21 15:45:00 2023-07-21 15:45:00 Outpatient R MARY DAVEY [facility] [id number] [facility] 2023-06-08 10:45:00 2023-06-08 11:00:00 Shoer Visit 2, Adc Lab Mary Davey [facility] BUILDING 1.2.840.114 350.1.13.10 4.2.7.2.686 [id number] [facility] 2023-06-08 10:45:00 2023-06-08 10:45:00 Outpatient R TATIANNA DAVEYEN [facility] [id number] [facility] 2023-05-25 14:30:00 2023-05-25 14:59:37 Outpatient R MARY DAVEY [facility] [id number] [facility] 2023-05-25 14:30:00 2023-05-25 14:59:37 [facility] 1..840.114 350.1.13.10 4.2.7.2.686 [id number] 134 [id number] [facility] 2023-05-25 00:00:00 2023-05-25 00:00:00 Orders Only Doctor Unassigned, Badger Lee [facility] 1..840.114 350.1.13.10 4.2.7.2.686 [id number] [facility] 2023-02-17 15:07:13 2023-02-17 15:07:13 Outpatient [facility] [id number] Y[address] [place] 2023-01-13 10:44:02 2023-01-13 10:44:02 Outpatient [facility] [id number] Yap [place] 2022-12-30 08:55:45 2022-12-30 08:55:45 Outpatient [facility] [id number] Yap Enrike 2022-08-11 13:04:16 2022-08-11 13:04:16 Outpatient [facility] [id number] Yap Enrike 2022-07-07 11:15:00 2022-07-07 11:15:00 Outpatient R HAYDEE SBERTINL HAYDEE SBERTINL [facility] [id number] [facility] 2021-11-18 08:00:00 2021-11-18 08:00:00 Outpatient R MARY DAVEY [facility] [id number] [facility] 2021-10-16 11:15:00 2021-10-16 12:08:54 Outpatient R LB WINKLER [facility] [id number] [facility] 2021-10-16 11:15:00 2021-10-16 12:08:54 Office Visit Lb Winkler [facility] PROFESSIO [facility] BUILDING 1.0.114 350.1.13.10 4.2.7.2.686 [id number] 134 [id number] [facility] 2021-10-16 00:00:00 2021-10-16 00:00:00 Orders Only Doctor Unassigned, Badger Lee [facility] 1.0.114 350.1.13.10 4.2.7.2.686 [id number] [facility] 2021-07-16 15:15:00 2021-07-16 15:15:00 Outpatient MARY STROUD [facility] [id number] [facility] 2021-07-15 00:00:00 2021-07-15 00:00:00 Patient Secure Msg Doctor Unassigned, Badger Lee [facility] 1.0.114 350.1.13.10 4.2.7.2.686 [id number] [facility] 2021-07-12 19:33:00 2021-07-14 13:00:00 Inpatient MARY PELAEZ [facility] [id number] [facility] 2021-07-12 19:33:00 2021-07-14 13:00:00 Hospital Encounter Adum, Mary De León [facility] 1..114 350.1.13.10 4.2.7.2.686 [id number] [facility] 2021-07-12 21:22:00 2021-07-13 00:10:00 Anesthesia Event Cory Garcia [facility] 1..114 350.1.13.10 4.2.7.2.686 [id number] [facility] 2021-07-12 21:56:02 2021-07-12 21:56:02 Anesthesia Event Cory Garcia [facility] 1.2.840.114 350.1.13.10 4.2.7.2.686 [id number] [facility] 2021-07-10 10:15:00 2021-07-10 10:55:22 Outpatient R MARY DAVEY [facility] [id number] [facility] 2021-07-10 10:15:00 2021-07-10 10:55:22 Routine Visit Lb Winkler [facility] 1.2.840.114 350.1.13.10 4.2.7.2.686 [id number] 134 [id number] [facility] 2021-06-28 00:00:00 2021-06-28 00:00:00 Telephone [facility] 1.2.840.114 350.1.13.10 4.2.7.2.686 [id number] 134 [id number] [facility] 2021-06-26 08:45:00 2021-06-26 09:00:00 Shoer Visit 2, Adc Lab [facility] 1.2.840.114 350.1.13.10 4.2.7.2.686 [id number] [facility] 2021-06-26 08:45:00 2021-06-26 08:45:00 Outpatient R MARY DAVEY [facility] [id number] [facility] 2021-06-25 00:00:00 2021-06-25 00:00:00 Telephone [facility] 1.2.840.114 350.1.13.10 4.2.7.2.686 [id number] 134 [id number] [facility] 2021-06-24 14:45:00 2021-06-24 15:00:00 [facility] 1.840.114 350.1.13.10 4.2.7.2.686 [id number] 134 [id number] [facility] 2021-06-24 14:45:00 2021-06-24 14:45:00 Outpatient LB FAITH [facility] [id number] [facility] 2021-06-24 00:00:00 2021-06-24 00:00:00 Orders Only Doctor Unassigned, Badger Lee [facility] 1.840.114 350.1.13.10 4.2.7.2.686 [id number] [facility] 2021-06-11 14:45:00 2021-06-11 15:54:34 Shoer Visit 1, [facility] Room Matt Lau [facility] SECURITIES ATTORNEY [facility] 1.840.114 350.1.13.10 4.2.7.2.686 [id number] [facility] 2021-06-11 14:45:00 2021-06-11 14:45:00 Outpatient She [facility] [id number] [facility] 2021-06-11 14:45:00 2021-06-11 14:45:00 Outpatient MATT GARAY [facility] [id number] [facility] 2021-06-11 14:45:00 2021-06-11 14:45:00 Outpatient MATT GARAY [facility] [id number] [facility] 2021-06-10 14:30:00 2021-06-10 15:32:06 Outpatient Fadi [facility] [id number] [facility] 2021-06-10 14:30:00 2021-06-10 15:32:06 Routine Visit [facility] 1.840.114 350.1.13.10 [id number] [id number] [facility] 2021-06-10 14:30:00 2021-06-10 15:32:06 Routine Visit [facility] 1..840.114 350.1.13.10 4.2.7.2.686 [id number] [facility] 2021-06-10 14:30:00 2021-06-10 14:30:00 Outpatient Fadi [facility] [id number] [facility] 2021-05-29 11:00:00 2021-05-29 11:00:00 Outpatient Fadi [facility] [id number] [facility] 2021-05-28 16:00:00 2021-05-28 16:00:00 Outpatient Fadi [facility] [id number] [facility] 2021-05-22 00:00:00 2021-05-22 00:00:00 Patient Secure Msg Doctor Unassigned, [place] Lee [facility] ..840.114 350.1.13.10 [id number] [id number] [facility] 2021-05-18 09:15:00 2021-05-18 09:30:00 Shoer Visit Pob, [facility] ..840.114 350.1.13.10 4.2.7.2.686 [id number] [facility] 2021-05-18 09:15:00 2021-05-18 09:15:00 [facility] [id number] [facility] 2021-05-18 00:00:00 2021-05-18 00:00:00 Orders Only Doctor Unassigned, Badger Lee [facility] 1.2.840.114 350.1.13.10 4.2.7.2.686 [id number] [id number] [facility] 2021-05-16 13:15:00 2021-05-16 13:32:35 Shoer Visit 2, Adc Lab [facility] 1.2.840.114 350.1.13.10 4.2.7.2.686 [id number] 353 [id number] [facility] 2021-05-16 13:15:00 2021-05-16 13:15:00 Outpatient R MARY DAVEY [facility] [id number] [facility] 2021-05-16 00:00:00 2021-05-16 00:00:00 Case Management Lb Winkler [facility] 1.2.840.114 350.1.13.10 4.2.7.2.686 [id number] 134 [id number] [facility] 2021-05-16 00:00:00 2021-05-16 00:00:00 Case Management Lb Winkler [facility] 1.2.840.114 350.1.13.10 4.2.7.2.686 [id number] 134 [id number] [facility] 2021-05-15 16:15:00 2021-05-15 16:43:18 Outpatient R MARY DAVEY [facility] [id number] [facility] 2021-05-15 16:15:00 2021-05-15 16:43:18 Routine Visit Mary Davey [facility] 1.2.840.114 350.1.13.10 4.2.7.2.686 [id number] 134 [id number] [facility] 2021-05-13 10:45:00 2021-05-13 10:45:00 Outpatient P [facility] [id number] [facility] 2021-05-09 15:15:00 2021-05-09 15:15:00 Outpatient R MARY DAVEY [facility] [id number] [facility] 2021-05-02 13:00:00 2021-05-02 13:00:00 Outpatient R MARY DAVEY [facility] [id number] [facility] 2021-05-02 13:00:00 2021-05-02 13:00:00 Outpatient R MARY DAVEY [facility] [id number] [facility] 2021-05-01 09:00:00 2021-05-01 09:00:00 Outpatient P [facility] [id number] [facility] 2021 00:00:00 2021 00:00:00 Telephone Peterson Lb [facility] 1.2.840.114 350.1.13.10 4.2.7.2.686 [id number] 134 [id number] [facility] 2021-04-10 15:30:00 2021-04-10 15:37:05 Routine Visit Peterson Lb [facility] 1.2.840.114 350.1.13.10 4.2.7.2.686 [id number] 134 [id number] [facility] 2021-04-10 15:30:00 2021-04-10 15:37:05 Outpatient R LB WINKLER [facility] [id number] [facility] 2021-04-10 15:30:00 2021-04-10 15:37:05 Outpatient R LB WINKLER [facility] [id number] [facility] 2021-04-10 15:00:00 2021-04-10 15:15:57 Outpatient ISAI SCHMIDT [facility] [id number] [facility] 2021-04-10 15:00:00 2021-04-10 15:15:00 Laboratory Only Only, Adc Pob2 Test Isai Amato [facility] 1.2.840.114 350.1.13.10 4.2.7.2.686 [id number] 225 [id number] [facility] 2021-04-10 00:00:00 2021-04-10 00:00:00 Telephone Imani Viveros [facility] 1.2.840.114 350.1.13.10 4.2.7.2.686 [id number] [facility] 2021-04-09 00:00:00 2021-04-09 00:00:00 Telephone Peterson Lb [facility] 1.2.840.114 350.1.13.10 4.2.7.2.686 [id number] 134 [id number] [facility] 2021-04-01 00:00:00 2021-04-01 00:00:00 Telephone Peterson Lb [facility] 1.2.840.114 350.1.13.10 4.2.7.2.686 [id number] 134 [id number] [facility] 2021-03-29 14:15:00 2021-03-29 14:15:00 Outpatient P [facility] [id number] [facility] 2021-03-18 10:45:00 2021-03-18 10:45:00 Outpatient P [facility] [id number] [facility] 2021-03-11 13:00:00 2021-03-11 13:58:02 Outpatient R MARY DAVEY [facility] [id number] [facility] 2021-03-11 13:00:00 2021-03-11 13:58:02 Routine Visit Mary Davey [facility] 1.2.840.114 350.1.13.10 4.2.7.2.686 [id number] 134 [id number] [facility] 2021-02-18 00:00:00 2021-02-18 00:00:00 Telephone Mary Davey [facility] 1.2.840.114 350.1.13.10 4.2.7.2.686 [id number] 134 [id number] [facility] 2021-02-07 08:30:00 2021-02-07 08:30:00 Outpatient R [facility] [id number] [facility] 2021-02-07 00:00:00 2021-02-07 00:00:00 Telephone Mary Davey [facility] 1.2.840.114 350.1.13.10 4.2.7.2.686 [id number] 134 [id number] [facility] 2021-02-06 10:03:04 2021-02-06 11:09:00 Shoer Visit 2, Adc Lab Mary Davey [facility] 1.2.840.114 350.1.13.10 4.2.7.2.686 [id number] [facility] 2021-02-06 10:15:00 2021-02-06 10:15:00 [facility] [id number] 2021-02-06 10:15:00 2021-02-06 10:15:00 Outpatient R MARY DAVEY [facility] [id number] [facility] 2021-02-06 08:58:30 2021-02-06 09:54:42 Office Visit Mary Davey [facility] 1.2.840.114 350.1.13.10 4.2.7.2.686 [id number] 134 [id number] [facility] 2021-02-06 00:00:00 2021-02-06 00:00:00 Orders Only Doctor Unassigned, Badger Lee [facility] 1.2.840.114 350.1.13.10 4.2.7.2.686 [id number] [id number] [facility] 2021-02-04 11:13:01 2021-02-04 12:00:52 Routine Visit Lb Winkler [facility] 1.2.840.114 350.1.13.10 4.2.7.2.686 [id number] 134 [id number] [facility] 2021-02-04 11:13:01 2021-02-04 12:00:52 Routine Visit Lb Winkler [facility] 1.2.840.114 350.1.13.10 4.2.7.2.686 [id number] 134 [id number] [facility] 2021-02-04 11:00:00 2021-02-04 12:00:52 Outpatient R PETERSON LB [facility] [id number] [facility] 2021-02-04 11:00:00 2021-02-04 12:00:52 [facility] [id number] 2021-02-04 00:00:00 2021-02-04 00:00:00 Patient Secure Msg [facility] 1.2.840.114 350.1.13.10 4.2.7.2.686 [id number] 134 [id number] [facility] 2021-01-28 00:00:00 2021-01-28 00:00:00 Telephone Mary Davey [facility] 1.2.840.114 350.1.13.10 4.2.7.2.686 [id number] 134 [id number] [facility] 2021-01-11 00:00:00 2021-01-11 00:00:00 Patient Secure Msg Doctor Unassigned, Badger Lee [facility] 1.2.840.114 350.1.13.10 4.2.7.2.686 [id number] 134 [id number] [facility] 2021-01-08 10:30:00 2021-01-08 10:30:00 Outpatient R [facility] [id number] [facility] 2021-01-08 08:30:00 2021-01-08 08:30:00 Outpatient ISAI SCHMIDT [facility] [id number] [facility] 2021-01-07 13:00:00 2021-01-07 13:00:00 [id number] 2021-01-07 11:19:13 2021-01-07 12:06:29 Routine Visit Petar [facility] 1..840.114 350.1.13.10 4.2.7.2.686 [id number] 134 [id number] [facility] 2021-01-07 11:00:00 2021-01-07 11:00:00 Outpatient R MARY DAVEY [facility] [id number] [facility] 2021-01-07 00:00:00 2021-01-07 00:00:00 Orders Only Doctor Unassigned, Badger Lee [facility] 1..840.114 350.1.13.10 4.2.7.2.686 [id number] [id number] [facility] 2020-12-25 09:24:35 2020-12-25 09:54:35 Initial Visit Mary Davey [facility] 1.2.840.114 350.1.13.10 4.2.7.2.686 [id number] 134 [id number] [facility] 2020-12-25 09:00:00 2020-12-25 09:00:00 Outpatient R MARY DAVEY [facility] [id number] [facility] 2020-12-25 00:00:00 2020-12-25 00:00:00 Orders Only Doctor Unassigned, Badger Lee [facility] 1.2.840.114 350.1.13.10 4.2.7.2.686 [id number] [id number] [facility] 2020-12-18 17:00:00 2020-12-18 23:59:00 Hospital Encounter Whitley Trujillo [facility] 1.2.840.114 350.1.13.10 4.2.7.2.686 [id number] [id number] [facility] 2020-12-18 00:00:00 2020-12-18 00:00:00 Outpatient R HAYLEYWHITLEY Noonan [facility] [id number] [facility] 2020-12-18 00:00:00 2020-12-18 00:00:00 Orders Only Doctor Unassigned, Badger Lee [facility] 1.2.840.114 350.1.13.10 4.2.7.2.686 [id number] [id number] [facility] 2020-12-14 16:00:00 2020-12-14 23:59:00 Hospital Encounter Whitley Trujillo [facility] 1.2.840.114 350.1.13.10 4.2.7.2.686 [id number] [id number] [facility] 2020-12-14 00:00:00 2020-12-14 00:00:00 Outpatient R HAYLEYWHITLEY Noonan [facility] [id number] [facility] 2020-12-14 00:00:00 2020-12-14 00:00:00 Orders Only Doctor Unassigned, Badger Lee [facility] 1.2.840.114 350.1.13.10 4.2.7.2.686 [id number] [id number] [facility] 2020-12-07 00:00:00 2020-12-07 00:00:00 Orders Only Doctor Unassigned, Badger Lee [facility] 1.2.840.114 350.1.13.10 4.2.7.2.686 [id number] [id number] [facility] Results Test Description Test Time Test Comments Results Result Co mments Source [facility] with Sqot5530-31-74 12:01:09* Test Item Value Reference Range Interpretation Comme nts WBC (test code = 6690-2) 11.42 4.30-11.10 H RBC (test code = 789-8) 2.80 3.93-5.25 L HGB (test code = 718-7) 8.0 g/dL 11.6-15.0 L HCT (test code = 4544-3) 25.3 % 35.7-45.2 L MCV (test code = 787-2) 90.4 fL 80.6-95.5 MCH (test code = 785-6) 28.6 pg 25.9-32.8 MCHC (test code = 786-4) 31.6 g/dL 31.6-35.1 RDW-SD (test code = 33747-2) 61.4 fL 39.0-49.9 H RDW-CV (test code = 788-0) 18.6 % 12.0-15.5 H PLT (test code = 777-3) 166 166-358 MPV (test code = 27595-1) 11.9 fL 9.5-12.9 NRBC/100 WBC (test code = 9730340122) 0.2 0.0-10.0 NRBC x10^3 (test code = 4824238519) 0.02 See_Comment [Automated messa ge] The system which generated this result transmitted reference range: 10*3/?L. The reference range was not used to interpret this result as normal/abnormal. GRAN MAT (NEUT) % (test code = 770-8) 80.7 % IMM GRAN % (test code = 4418836102) 0.70 % LYMPH % (test code = 736-9) 12.1 % MONO % (test code = 5905-5) 5.8 % EOS % (test code = 713-8) 0.3 % BASO % (test code = 706-2) 0.4 % GRAN MAT x10^3(ANC) (test code = 9986221063) 9.22 10*3/uL 1.88-7.09 H IMM GRAN x10^3 (test code = 4737046447) 0.08 10*3/uL 0.00-0.06 H LYMPH x10^3 (test code = 731-0) 1.38 10*3/uL 1.32-3.29 MONO x10^3 (test code = 742-7) 0.66 10*3/uL 0.33-0.92 EOS x10^3 (test code = 711-2) 0.03 10*3/uL 0.03-0.39 BASO x10^3 (test code = 704-7) 0.05 10*3/uL 0.01-0.07 Lab Interpretation (test code = 61813-5) Abnormal [facility] OR TARA ONLY - [id number] 08:07:22* Test Item Value Reference Range Interpretation Comme nts RPR (Qualitative) (test code = 44287-4) Nonreactive Nonreactive Lab Interpretation (test cod e = 52409-9) Normal [facility] OR TARA ONLY - [id number] 08:07:22* Test Item Value Reference Range Interpretation Comme nts RPR (Qualitative) (test code = 98685-0) Nonreactive Nonreactive Lab Interpretation (test cod e = 15603-4) Normal [facility] (in units), 1 Units 2024-01-05 04:44:48* Test Item Value Reference Range Interpretation Comme nts Cross Match Result (test code = 4409) Compatible ISBT Blood Type Code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 Outcome: Progressing as expected Goal: Absence of active bleeding Outcome: Progressing as expected Ana Bradley RN [facility] 2024-01-04 18:52:42 Problem: Falls, Risk of Goal: Absence of falls 01/04/20241851 by Taco Regalado RN Outcome: Progressing as expected 01/04/20241848 by Taco Regalado RN Outcome: Progressing as expected Problem: Discharge Planning - Goal: Adequate for discharge 01/04/20241851 by Taco Regalado RN Outcome: Progressing as expected 01/04/20241848 by Taco Regalado RN Outcome: Progressing as expected Goal: Mood stable 01/04/20241851 by Taco Regalado RN Outcome: Progressing as expected 01/04/20241848 by Taco Regalado RN Outcome: Progressing as expected Problem: Bleeding, Risk of Goal: Absence of impaired coagulation signs and symptoms Outcome: Progressing as expected Goal: Absence of active bleeding Outcome: Progressing as expected [facility] 2024-01-04 18:50:02 Problem: Falls, Risk of Goal: Absence of falls Outcome: Progressing as expected Problem: Discharge Planning - Goal: Adequate for discharge Outcome: Progressing as expected Goal: Mood stable Outcome: Progressing as expected [facility] 2024-01-04 13:09:23 Delivery Date: 01/04/2024 Delivery Time: 9:15 AM DELIVERY BY SECTION Date of Service: : 01/04/2024 at 9:15 AM Admitted for: labor at 39 wks, Primary Lower uterine tranverse section with no extension, s/p BTL, Pfannenstiel, Closed with suture, EBL 1050 cc, hemorrhage, Findings: transverse lie with head to maternal right, spine up Delivery Summary Sex: female [place] Weight: 3980 g 1 Minute 5 Minute 10 Minute Totals: 8 9 Primary Indication: The patient was taken to the operating room for a primary section due to: Malpresentation - Transverse lie at 39w2d weeks. Procedures: Primary Lower uterine tranverse section with no extension Modified [place] bilaterla tubal ligation Specimens Removed: Placenta Surgeon: Mary Davey MD Report: Prophylactic antibiotic, Ancef and Azithromycin was given before patient was taken to OR. After arrival to the operating room patient was placed in the supine position with left lateral tilt after administration of spinal anesthesia. Laparotomy A pfannenstiel incision was made through the anterior abdominal wall with #10 scalpel. The incision was extended sharply with the #10 scalpel through the subcutaneous tissue to the level of fascia. The fascia was entered sharply with a #10 scalpel (Pfannenstiel) in the midline and extended bluntly. The rectus muscles were in the midline bluntly with digits. The peritoneum was then entered bluntly. The peritoneal incision was then extended superiorly and inferiorly under direct visualization with care being taken to avoid bladder and bowel. No adhesions were noted. The peritoneal incision was enlarged bluntly by lateral traction from the surgeon's and digital marketing assistant's hand. Delivery Large vessels noted in the lower uterine segment. A bladder flap was developed by grasping with [place]i forcep and enter with Metzenbaun scissor. Then sharp and blunt dissection with Metzenbaum scissor and fingers were performed. A low transverse hysterotomy was made then with #10 scalpel and extended laterally and cephalad with fingers in a low transverse fashion with Manu Redmond technique with care being taken to avoid injury to the fetus. The amniotic (membranes) were then entered, and the amniotic fluid was noted to be clear . Upon hysterotomy, right arm presented in the hysterotomy. small parts were noted with back up. Surgeon placed hand into uterine cavity to identify head. Nitro given. Fetus was delivered in cephalic presentation. With delivery the baby, no extension was noted.Delayed cord clamping was performed for 30-60 seconds. Placenta was delivered spontaneously with steady traction on cord and manual separation of placenta from uterine wall. Closure Uterine cavity was cleaned after placental delivery with lap sponge x 2. The hysterotomy was closed in one layer with stitches using 1-0 Monocryl with continuous locking stitches from both angles. Hemostasis was achieved as needed with electrocautery. The ovaries/tubes/uterine surface were evaluated. They were found to be normal. PROCEDURE - BILATERAL TUBAL LIGATION The right fallopian tube was grasped at midportion with Philo forceps and followed out to distal end until the fimbria was visualized. The fallopian tube was ligated and resected with Modified [place] technique - Philo clamp was placed on fallopian tube and placed on gentle traction to create a loop. Two 0-plan gut sutures were used to ligate this loop and metzenbaum scissor was used to perforate the mesosalpinx bluntly. Each ligated portion of the tube was then transected individually.. The transected ends of fallopian tube were examined to insuring the presence of fallopian lumen and good hemeostasis. The left fallopian tube was grasped at midportion with Philo forceps and followed out to distal end until the fimbria was visualized. The fallopian ligated with 0-plain guts sutures with Modified [place] technique - Philo clamp was placed on fallopian tube and placed on gentle traction to create a loop. Two 0-plan gut sutures were used to ligate this loop and metzenbaum scissor was used to perforate the mesosalpinx bluntly. Each ligated portion of the tube was then transected individually.. After insuring good hemeostatis of the transected ends and the presence of fallopian lumens, the fallopian tube was replaced into abdomen. Rectus muscle was reapproximated with 2-0 Monocryl. Fascia was closed with running stitches using 0 Biosyn . Hemostasis was checked for and found to be adequate. The subcutaneous tissue was irrigated and hemostasis was achieved where needed with electrocautery. The skin was then closed with subcutaneous stitches using 3-0 Vicryl sutures. The incision was cleaned and covered with a compression bandage and the procedure considered to be complete at this time. Intraoperative Complications: hemorrhage EBL: 1050 Uterotonics: 30 units of Pitocin mixed in 500 cc of LR Disposition: The patient tolerated the procedure well. She was recovered in the Labor and Delivery Room with routine care in stable condition, with a contracted uterus and normal transvaginal bleeding. The was sent to Transition Nursery. The placenta was not sent to pathology. Mayr Davey MD 01/04/2024 1:17 PM [facility] 2024-01-04 07:00:00 Problem: Falls, Risk of Goal: Absence of falls Outcome: Progressing as expected Problem: Intrapartum process (including labor pain) Goal: Absence of or reduction of complications of labor Outcome: Progressing as expected Goal: Able to cope with pain Outcome: Progressing as expected Goal: Adequate to move to next level of care Outcome: Progressing as expected Goal: Reduction in pain sensation Outcome: Progressing as expected Problem: Discharge Planning - Goal: Adequate for discharge Outcome: Progressing as expected Goal: Mood stable Outcome: Progressing as expected Mindy Villar RN [facility] 2024-01-03 23:19:22 Problem: Intrapartum process (including labor pain) Goal: Absence of or reduction of complications of labor Outcome: Progressing as expected Goal: Able to cope with pain Outcome: Progressing as expected Goal: Adequate to move to next level of care Outcome: Progressing as expected Goal: Reduction in pain sensation Outcome: Progressing as expected Problem: Discharge Planning - Goal: Adequate for discharge Outcome: Progressing as expected Goal: Mood stable Outcome: Progressing as expected T [facility] 2024-01-03 21:47:22 Name/ MRN / Age / Gender: Basim Osorio, [id number] 41 year old female BMI: Estimated body mass index is 26.91 kg/m? as calculated from the following: Height as of this encounter: 1.727 m (5' 8"). Weight as of this encounter: 80.3 kg (177 lb). Allergies: Patient has no known allergies. Last Vitals: BP Readings from Last 1 Encounters: 01/03/24 129/80 Pulse Readings from Last 1 Encounters: 01/03/24 90 SpO2 Readings from Last 1 Encounters: 01/03/24 99% Date of Surgery: Surgeon: * Surgery not found * Procedure: LABOR CONSULT OR Location: * No surgery found * Anesthesia Preop Eval (physical exam) Anesthesia Preop: Chart Review and [id number] APAC Communication: 41 y/o @ 39w1d for labor consult. SROM. NPO Status Verified Clear Liquids: > 2 Hours PONV Risk Factors: female and non-smoker PONV Risk Score: 2 Anesthesia History Anesthesia History Negative (-) Fam hx of anesthetic complications Previous Anesthetics/Airways Additional Comments: Prev LEAs x3, no comps Cardiovascular METS: 5-6 Pulmonary Negative Pulmonary ROS Neuro/Musculoskeletal Negative Neuro/Musculosketal ROS GI/Hepatic Negative GI/Hepatic ROS Hematology (+) Anemia and iron deficiency Prior Blood Transfusion: No (-) No previous positive antibody screen (-) No historical type and screen Type and Screen Ordered: Yes Patient Accepts Blood Transfusion: Yes Renal Negative Renal ROS Skin (+) Current IV access (right wrist) and 18g Endo/Other Negative Endo/Other ROS Other SECURITIES ATTORNEY P: 4 Gestational Age: 39w1d on 01/03/2024 Pediatric Pediatric N/A N/A Preoperative Medication Instructions Continue taking all prescribed medications except: FREDERICK inhibitors, ARBs, diuretics, all oral diabetes medications Anticoagulant Therapy: Defer to surgeons Insulin: Take 1/2 dose the night prior to surgery. Hold on DOS. Phentermine: Alert [facility] anesthesiologist SGLT2 Inhibitors: "gliflozins" to be held for 3 days prior to elective surgeries GLP1 Agonosit: stop 7 days prior to surgery MAC Cases: Continue taking FREDERICK inhibitors and ARBs ASA Classification ASA: 2 Current Medications: Outpatient Medications Marked as Taking for the 01/03/24 encounter (Hospital Encounter) Medication Sig Dispense Refill ondansetron (ZOFRAN) 4 mg tablet Take 1 tablet by mouth every 8 (eight) hours as needed for Nausea and Vomiting (N/V). 30 tablet 0 ferrous sulfate 325 mg (65 mg iron) tablet Take 1 tablet by mouth in the morning and 1 tablet in the evening. 60 tablet 1 citalopram (CELEXA) 20 mg tablet Take 1 tablet by mouth in the morning. 30 tablet 4 aspirin 81 mg EC tablet Take 1 tablet by mouth in the morning. 30 tablet 6 Previous Surgeries: History reviewed. No pertinent surgical history. Anesthesia Physical Exam General no apparent distress and alert and oriented x 3 Neuro/Psych neurological Nonfocal Dental no notable dental hx Abdominal GI exam normal (+) abdomen soft, benign and gravid Airway Mallampati score:II TM distance:> 5 cm Neck ROM: full Mouth opening:normal (+) Normal facies Extremity Normal extremity Pulmonary pulmonary exam normal and bilateral clear to auscultation Other Cardiovascular cardiovascular exam normalRhythm:Regular Rate: Normal (-) no murmur and peripheral edema Anesthesia Plan ASA Status: 2 Plan discussed during pre-op evaluation: General, Epidural, Spinal and CSE Anesthesia plan discussed with: patient or customer loyalty representative Post-Operative Analgesia: routine analgesia & antiemetics Recovery Plan: LDR Additional comments: [facility] 2024-01-03 21:03:[address] Davey 39w1d Scheduled for induction tomorrow C/o "abdominal tightening" states she does not think it feels like CTX but isn't sure Report called to Lorrie in LD Pt taken to L&D by wheelchair Raya Cabezas RN [facility] 2023-12-28 09:00:00 Age: [age] year old GA: 38w2d Doing well Anemia -Hemoglobin 9.1 on 10/07/2023 -on Iron LGA -growth 11/26/2023: EFW 6 lbs 4 oz at 95th%ile. AC is >97th%ile. MERARI is wnl -Follow-up ultrasound scheduled for 12/25/2023, not completed Polyhydramnios -Resolved Depression - on Celexa 20 mg daily. - Denies SI/HI. - Denies SI/HI - continue Celexa AMA - Panorama low risk female - never started low dose aspirin - genetics counseling for 11/27/2023 - Induction scheduled for 39 weeks on 01/04/2024 unless clinically indicated otherwise -NST reactive and reassuring -Continue weekly NST MPDPS - consent signed on 10/30/23 - All questions answered, and patient expressed her desire to proceed with bilateral tubal ligation surgery. Daily kick counts and labor precautions given Follow-up in 4 to 6 weeks for visit [facility] 2023-12-21 11:00:00 Age: [age] year old GA: 37w2d Doing well Anemia -Hemoglobin 9.1 on 10/07/2023 -on Iron LGA -growth 11/26/2023: EFW 6 lbs 4 oz at 95th%ile. AC is >97th%ile. MERARI is wnl -Follow-up ultrasound scheduled for 12/25/2023 Polyhydramnios -Resolved Depression - on Celexa 20 mg daily. - Denies SI/HI - continue Celexa AMA - Panorama low risk female - never started low dose aspirin - genetics counseling for 11/27/2023 - Induction scheduled for 39 weeks on 01/04/2024 unless clinically indicated otherwise -NST reactive and reassuring -Continue weekly NST MPDPS - consent signed on 10/30/23 - All questions answered, and patient expressed her desire to proceed with bilateral tubal ligation surgery. Daily kick counts and labor precautions given Follow-up on Mon for NST/PN [facility] 2023-12-14 11:00:00 Age: [age] year old GA: 36w2d Doing well Irregular contractions/pelvic pressure -SVE 2/25/high - labor precautions given Anemia -Hemoglobin 9.1 on 10/07/2023 -on Iron LGA -growth 11/26/2023: EFW 6 lbs 4 oz at 95th%ile. AC is >97th%ile. MERARI is wnl -Follow-up ultrasound scheduled for 12/25/2023 Polyhydramnios -Resolved Depression - on Celexa 20 mg daily. - EPDS 6. Denies SI/HI - continue Celexa AMA - Panorama low risk female - never started low dose aspirin - genetics counseling for 11/27/2023 - Induction scheduled for 39 weeks on 01/04/2024 unless clinically indicated otherwise -NST reactive and reassuring -Continue weekly NST MPDPS - consent signed on 10/30/23 - All questions answered, and patient expressed her desire to proceed with bilateral tubal ligation surgery. GBS negative on 12/03/2023 Follow-up on Mon for NST/PN [facility] 2023-12-11 11:30:00 Age: [age] year old GA: 35w6d Nausea -States that she felt nauseous when drinking lemonade. Discussed heartburn symptoms and avoid triggers -Zofran prescribed as Reglan interacts with Celexa Dizziness -States that she drink about 40 ounces of water yesterday and only had 1 glass of lemonade before being seen in clinic today. Discussed importance of adequate hydration. - Intermittent dizziness especially when standing up. Denies syncope. Advise changing positions frequently, use compression stockings if standing for a long period, use cool packs as needed. Advise taking time between changing positions, eating regular and frequent meals, and drinking plenty of water. Denies chest pain, SOB, palpitations. Fall precautions reviewed. Anemia -Hemoglobin 9.1 on 10/07/2023 -on Iron LGA -growth 11/26/2023: EFW 6 lbs 4 oz at 95th%ile. AC is >97th%ile. MERARI is wnl -Follow-up ultrasound scheduled for 12/25/2023 Polyhydramnios -Resolved Depression - on Celexa 20 mg daily. - EPDS 8 . Denies SI/HI - continue Celexa AMA - Panorama low risk female - never started low dose aspirin - genetics counseling for 11/27/2023 - Induction scheduled for 39 weeks on 01/04/2024 unless clinically indicated otherwise -Will initiate weekly NST starting at 36 weeks MPDPS - consent signed on 10/30/23 - All questions answered, and patient expressed her desire to proceed with bilateral tubal ligation surgery. Received RSV vaccines today This reviews what Dr. Davey talked about at your 36 week talk: 1. Go to Labor and Delivery when your contractions are 5-7 minutes apart and you have been able to time them for an hour. If you live more than 30 minutes from the hospital, then go when they are 10 minutes apart and you have been able to time them for an hour. 2. BUT, there are 4 reasons to go to Labor and Delivery REGARDLESS of what else is happening, whether you are rose or not: 1. If your water breaks - - - it may be a gush or a constant trickle. If you are not sure, always come in to be checked. 2. Bleeding like your period. 3. If your baby's movements are less than 10 in an hour. If you are concerned this might be the case, drink a tall glass of cold fluids, lay down on your side on the couch or your bed and see how long it takes to note 10 movements - if less than 10, this needs to be evaluated immediately. 4. Contractions or Pain that is continuous. Normal labor contractions last only 45 seconds - 1 minute. Cephalic presentation CBC ordered GBS negative on 12/03/2023 Zika precautions reviewed Contraception PP: Depo then BTL Delivery consent signed today Follow-up on Thu for NST/PN [facility] 2023-12-03 08:29:16 Pt c/o tightening of abdomin started yesterday at 5 pm and "baby low". Only with movement. Denies pain x2, lower back pain, LOF, vaginal bleeding, or discharge. Pt stated "it's just discomfort. No pain". Advised pt to go to L&D. Report given to Darcy. Verbalized understanding. BABITA DONOVAN RN 12/03/2023 8:39 AM [facility] 2023-12-03 08:23:21 Basim Osorio is a 43 year old female 34 weeks - Patient feels like baby is very low and tightness around belly. Patient feels very uncomfortable to the point she can barely move. T Niya Bender [facility] 2023-11-27 13:15:00 Age: [age] year old GA: 33w6d ASSESSMENT: Basim Osorio is a 43 year old at 33w6d who presents for routine visit. Patient Active Problem List Diagnosis Current mild episode of major depressive disorder without prior episode High-risk in third trimester Advanced maternal age, primigravida, antepartum Polyhydramnios, antepartum, single or unspecified fetus Excessive growth affecting , antepartum, single or unspecified fetus PLAN 1. High-risk in third trimester 2. 33 weeks gestation of - POCT Urinalysis w/o Specific [place] Discussed recommendation for RSV vaccine up to 36 weeks , VIS given, pt will review 3. Advanced maternal age, primigravida, antepartum On LDA 4. Excessive growth affecting , antepartum, single or unspecified fetus FU growth ( 11/26/23) is accelerated with EFW at 95th%ile. The AC is >97th%ile. The MERARI is WNL. Reviewed report with pt and plan to NST biweekly from 36 weeks. 5. Anemia of mother in , antepartum On oral iron , will repeat at 36 weeks She verbalized understanding --All questions answered RTC with Dr. Davey in 2 weeks or prn Anabel Richey DNP, DELIVERY LEAD- 11/27/2023 at 1:15 PM T [facility] [employer] 2023-11-27 11:37:20 Genetics telehealth no show - did not join video call link, no answer on phone x2 Serena Pulido [facility] 2023-11-13 10:45:00 Age: [age] year old GA: 31w6d Doing well Anemia -Hemoglobin 9.1 on 10/07/2023 -on Iron LGA - Ultrasound on 10/26/2023: EFW 4 pounds, greater than 97th percentile with AC greater than 97th percentile -Follow-up growth scheduled for 11/26/2023 Polyhydramnios -Resolved on 11/02/2023 ultrasound Depression - supposed to take Celexa 20 mg daily. Patient states that she sometimes forget to take her medication and takes it every 3 days. Discussed importance of taking medication as prescribed. - EPDS7. Denies SI/HI - continue Celexa AMA - Panorama low risk female - never started low dose aspirin - genetics counseling for 11/27/2023 - Induction scheduled for 39 weeks on 01/04/2024 unless clinically indicated otherwise -Will initiate weekly NST starting at 36 weeks MPDPS - consent signed on 10/30/23 - All questions answered, and patient expressed her desire to proceed with bilateral tubal ligation surgery. Daily kick counts Follow-up in 2 weeks for visit with VICE PRESIDENT [employer]ING Follow-up in 4 weeks for visit with Davey [facility] [employer] 2023-11-13 10:39:01 Associated Problem(s): Polyhydramnios, antepartum, single or unspecified fetus Resolved on 10/2023 ultrasound T [facility] [employer] 2023-10-30 13:15:00 Age: [age] year old GA: 29w6d Doing well Anemia -Hemoglobin 9.1 on 10/07/2023 -Iron prescribed LGA with polyhydramnios - Ultrasound on 10/26/2023: EFW 4 pounds, greater than 97th percentile with AC greater than 97th percentile Polyhydramnios: MERARI 27.15 -->> ultrasound scheduled on 11/02/23 -Growth ultrasound scheduled on 11/26/2023 Depression - supposed to take Celexa 20 mg daily. Patient states that she sometimes forget to take her medication and takes it every 3 days. Discussed importance of taking medication as prescribed. - EPDS 11. Denies SI/HI - continue Celexa AMA - Panorama low risk female - never started low dose aspirin - genetics counseling referral placed MPDPS - consent signed today - "I counseled the patient regarding risks, benefits and alternatives of laparoscopic Bilateral Tubal Ligation. Explained that it is a surgical procedure that is done by ligating/cutting/occluding a segment of the tubes;hence, it is a permanent form of control that requires a surgical procedure for reversal (if she changes her mind afterwards), which might not be successful and increases the risk of ectopic if does eventually occur. Risks include but not limited to: infection, bleeding, need for transfusion of blood/blood products, injury to ureter, bladder, bowel with possible further surgery, stint, catheterization or colostomy to repair, conversion to open. The permanence of this procedure and risk of regret in 1 in 3 women were discussed. tubal ligation failure rate is 0.75% and higher in women younger than 30 years old. There is an increased risk for ectopic and the need to seek medical attention should failure of tubal ligation occur. Alternatives discussed include: Oral Contraceptive Agents, Intrauterine Device, Nexplanon, Depo Provera, Ring, Patch, Condoms/foam, vasectomy of partner, or bilateral salpingectomy. Salpingectomy has been shown to decrease risk of ovarian cancer, similar to tubal ligation; however, no tubal reversal will be able to be done in the future and might be able to achieve with in vitro fertilization only. All questions answered, and patient expressed her desire to proceed with bilateral tubal ligation surgery." 28-week labs and serologies normal except for anemia and abnormal 1 hour, normal 3-hour GTT. Hemoglobin A1c 5. Healthy diet and exercise discussed Received Tdap vaccine today 3rd trimester teaching done- reviewed S/S of PTL (contractions, leakage of fluid and Vaginal bleeding) and also Kick Counts. Also dicussed Parke-Jose, pelvic and lower back pains- expectations and differenced with S/S of PTL She plans to bottle fed BC options reviewed- opted for Depo immediately and then BTL Countersinker Balance Screw Hole: Otoniel Encourage patient to bring in wishes if she has any. Follow-up in 2 weeks for visit [facility] 2023-10-28 08:15:00 Images from the original note were not included. Venipuncture collection performed by clean technique on the left anticubitus. Total of 1 attempts were made. Slight pressure and a bandage/dressing were applied to the site(s). The patient experienced no complications. The following specimens were processed according to instructions and sent to [facility] laboratories per lab order on 10/28/2023 : LT BLUE SST 1 RED LAV PPT DK GREEN (LiHep) DK GREEN (SodH) REYNOLDS DK BLUE (K2) DK BLUE (S) ACD Blood Culture NIPT/NTD Loaded pt w 100gm orange, no issues. Draw time: 913, 1014, 1114 T [facility] 2023-10-28 08:15:00 Images from the original note were not included. Venipuncture collection performed by clean technique on the left anticubitus. Total of 1 attempts were made. Slight pressure and a bandage/dressing were applied to the site(s). The patient experienced no complications. The following specimens were processed according to instructions and sent to [facility] laboratories per lab order on 10/28/2023 : LT BLUE SST 1 RED LAV PPT DK GREEN (LiHep) DK GREEN (SodH) REYNOLDS DK BLUE (K2) DK BLUE (S) ACD Blood Culture NIPT/NTD T [facility] 2023-10-28 08:15:00 Images from the original note were not included. Venipuncture collection performed by clean technique on the left anticubitus. Total of 1 attempts were made. Slight pressure and a bandage/dressing were applied to the site(s). The patient experienced no complications. The following specimens were processed according to instructions and sent to [facility] [employer] per lab order on 10/28/2023 : LT BLUE SST 1 RED LAV PPT DK GREEN (LiHep) DK GREEN (SodH) REYNOLDS DK BLUE (K2) DK BLUE (S) ACD Blood Culture NIPT/NTD T [facility] 2023-10-28 08:15:00 Images from the original note were not included. Venipuncture collection performed by clean technique on the left anticubitus. Total of 1 attempts were made. Slight pressure and a bandage/dressing were applied to the site(s). The patient experienced no complications. The following specimens were processed according to instructions and sent to [facility] laboratories per lab order on 10/28/2023 : LT BLUE SST 1 RED LAV PPT DK GREEN (LiHep) DK GREEN (SodH) REYNOLDS DK BLUE (K2) DK BLUE (S) ACD Blood Culture NIPT/NTD [facility] 2023-10-27 12:40:14 Images from the original note were not included. Babita Donovan RN 10/27/2023 12:40 PM CDT Back to Top Name and verified. Pt advised of results and plan of care as stated below per provider. The biometry was consistent with the dates provided No obvious malformations or markers of aneuploidy noted LGA and polyhydramnios: 1 hour abnormal, 3-hour pending. Recommend patient getting 3-hour GTT done ELEANOR. --> follow-up ultrasound ordered AMA: please offer genetics counseling and order it if patient accepts Pt verbalized understanding. Appt made for 3hr GTT. Would like genetic counseling as a telehealth visit. Will send referral. BABITA DONOVAN RN 10/27/2023 12:39 PM Babita Donovan RN [facility] 2023-10-27 08:45:36 Pt returning call reg test result, pls omid patient. Patrizia Drew [facility] 2023-10-07 13:00:00 Loaded pt w 50gm lemon inaja glucola, no issues. Draw time 1411 [facility] 2023-10-07 13:00:00 Images from the original note were not included. Venipuncture collection performed by clean technique on the left anticubitus. Total of 1 attempts were made. Slight pressure and a bandage/dressing were applied to the site(s). The patient experienced no complications. The following specimens were processed according to instructions and sent to [facility] laboratories per lab order on 10/07/2023 : LT BLUE SST 2 RED 1 LAV 2 PPT DK GREEN (LiHep) DK GREEN (SodH) REYNOLDS DK BLUE (K2) DK BLUE (S) ACD Blood Culture NIPT/NTD [facility] 2023-10-07 10:44:40 Returned patients call. Patient wanting to know if she has to fast before her 1 hour glucose test today. Patient advised she does not have to fast but it is not recommended to eat sugary meal before test. Patient wanting to know date and time of her next appointment. Date and time given to patient. Patient wanting to know results of her new OB labs. Results given per Dr Davey note: New OB labs within normal limits except for rubella nonimmune No other questions or concerns at this time. Vick Schroeder RN 10/07/2023 10:47 AM Vick Schroeder RN [facility] 2023-10-07 09:56:55 Patient has questions regarding future labs and last visit instructions, she does not have mychart activated. Please advise. Katherine Freedman MA [facility] 2023-09-21 13:15:00 Age: [age] year old GA: 24w2d Doing well without concerns. Patient has not been seen since 7 weeks gestation. Been busy with working. Discussed importance of keeping her care appointments. LSIL Pap with positive HPV in 2020 - s/p colposcopy on 01/2021. no follow-up since then - Pap and HPV neg on 05/25/2023 Depression - stable on Celexa 20 mg daily - EPDS 9. Denies SI/HI - continue Celexa AMA - Panorama low risk female - aspirin ordered - will discuss genetics counseling at later visit MPDPS - will discuss next visit New OB labs within normal limits except for rubella nonimmune 28-week labs and serologies ordered Follow-up in 4 weeks for visit [facility] 2023-06-08 10:45:00 Images from the original note were not included. Venipuncture collection performed by clean technique on the left anticubitus. Total of 1 attempts were made. Slight pressure and a bandage/dressing were applied to the site(s). The patient experienced no complications. The following specimens were processed according to instructions and sent to [facility] laboratories per lab order on 06/08/2023 : LT BLUE SST 3 RED 1 LAV 2 PPT DK GREEN (LiHep) DK GREEN (SodH) REYNOLDS DK BLUE (K2) DK BLUE (S) ACD Blood Culture NIPT/NTD Patient has been identified by and name and was provided with cup, antiseptic towelette, and clean catch instructions. 2 urine specimen(s) sent. Unpreserved 1 Urine Culture 1 Aptima tube Other urine [place] Blood Collection Kit TRK# [id number] [facility] 2023-05-25 14:30:00 Age: [age] year old GA: 7w2d LSIL Pap with positive HPV in 2020 - s/p colposcopy on 01/2021. no follow-up since then - Pap and HPV collected today Depression - stable on Celexa 20 mg daily - EPDS 8. Denies SI/HI - discussed and will continue Celexa - continue to monitor AMA - Discussed Panorama. Agreed. Panorama ~ 10 wks - Discussed low dose aspirin. Patient agreed. Will start at 12 wks - will discuss genetics counseling at later visit MPDPS - interested - will discuss at 24-28 wks Transvaginal USG for FHT: Single live IUP measured 7 5/7 weeks, consistent with LMP. Will date by Patient's last menstrual period was 04/04/2023 unless clinically indicated otherwise New OB labs today. No complaints. Discussed do's and don'ts of , safe foods, safe medications. Reviewed Zika virus precautions. I discussed the call schedule and that I might not be the physician delivering her. I discussed I deliver my patients at [facility]. Expectations for weight gain this include 25-35 pounds. Encouraged to call if have any additional questions or concerns. Discussed aneuploidy and carrier screening; patient opts for panorama. Panorama neg in 2020. Have not received COVID vaccines. Counseled and recommend COVID vaccines. Patient declined Received flu vaccines today Discussed about COVID-19/flu precautions. Social distancing, frequent hand washings, wearing face mask, signs/symptoms for testing and to follow CDC recommendations discussed. Discussed with patient that she can have HEALTHY support with her during her delivery (which is subject to change depends on the COVID pandemic) Next visit in 4 week [facility]
[2024-05-04 13:27] LABS: SARS-CoV-2 Antigen CONTROL BLUE LINE VIS/BG OK; SARS-CoV-2 Antigen Rapid Res Negative (Negative)
--- NOTE | 2024-05-04 13:45 | EDPHYS ---
Physician Documentation [facility] Name: Hillary Mcclain Age: 44 yrs Sex: Female : 1980 Arrival Date: 05/04/2024 Time: 12:32 Bed IW6 Private MD: ED Physician Amarjit Knowles HPI: 05/04 12:58 This 44 yrs old Female presents to ER via Ambulatory with complaints of Flu Symptoms, kb Doesn't Feel Right. 12:58 Pt is a 44 year old female who presents for sore throat that started 2 days ago. Denies kb cough, congestion, fever. States she was sweating last night so she may have had a fever then. Pt reports her daughter and sister had similar symptoms. . 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 - Infectious Disease History:: Denies. - Social history:: Smoking status: Reported history of juuling and/or vaping. Patient denies any tobacco usage or history of. ROS: 12:58 Constitutional: As per HPI kb Exam: 12:58 Constitutional: This is a well developed, well nourished patient who is awake, alert, kb and in no acute distress. Head/Face: Normocephalic, atraumatic. ENT: Moist Mucous membranes Cardiovascular: Regular rate Respiratory: Respirations even and unlabored. No increased work of breathing. Talking in full sentences Abdomen/GI: Soft, non-tender. No distention Skin: Warm, dry with normal turgor. Normal color. MS/ Extremity: Pulses equal, no cyanosis. Neurovascular intact. Full, normal range of motion. Neuro: Awake and alert, GCS 15, oriented to person, place, time, and situation. 12:58 ENT: Nose: is normal, Mouth: is normal, Posterior pharynx: erythema, that is mild, Vital Signs: 12:54 BP 121 / 91; Pulse 80; Resp 17; Temp 97.1; Pulse Ox 100% ; Weight 63.5 kg; Height 5 ft. ll1 8 in. ; 12:54 Body Mass Index 21.29 (63.50 kg, 172.72 cm) ll1 MDM: 12:57 Medical Screening Exam initiated 13:01 Data reviewed: vital signs, nurses notes. 13:01 Differential diagnosis: flu, covid, strep, pharyngitis. kb 13:43 I considered the following discharge prescriptions or medication management in the emergency department I discussed and recommended Over The Counter medications, Antibiotics: At this time antibiotics are not recommended, Antivirals: At this time, antivirals are not recommended. Counseling: I had a detailed discussion with the patient and/or guardian regarding the historical points, exam findings, and any diagnostic results supporting the discharge/admit diagnosis, lab results, the need for outpatient follow up, a family practitioner, to return to the emergency department if symptoms worsen or persist or if there are any questions or concerns that arise at home. 05/04 13:01 Order name: SARS-COV-2 Antigen Rapid; Complete Time: 13:34 05/04 13:01 Order name: Strep 05/04 13:01 Order name: Flu; Complete Time: 13:38 05/04 13:31 Order name: Throat Culture EDMS Administered Medications: No medications were administered Disposition Summary: 05/04/24 13:44 Discharge Ordered Notes: Location: Home Condition: Stable Diagnosis - Acute pharyngitis, unspecified kb Followup: kb - With: Private Physician - When: 2 - 3 days - Reason: Recheck today's complaints, Continuance of care, Re-evaluation by your physician Followup: kb - With: Emergency Department - When: As needed - Reason: Worsening of condition Discharge Instructions: - Sore Throat kb - Pharyngitis, [id number] kb - Discharge Summary Sheet ll1 Forms: - Medication Reconciliation Form kb - Antibiotic Education kb - Prescription Opioid Use kb - Patient Portal Instructions kb - Leadership Thank You Letter - Work release form ll1 Addendum: 05/08/2024 08:49 Co-signature as Attending Physician, Amarjit Knowles MD I agree with the assessment and c chu plan of care. Signatures: Dispatcher [employer] EDMS Joanna Valles, RUTH ANN-Brenden VALLECILLO-Amarjit Pickett MD MD cha Lewis, Lynsay, RN RN ll1 Corrections: (The following items were deleted from the chart) 05/04 12:57 12:49 Allergies: ACETAMINOPHEN; ll1 ll1 12:57 12:49 Allergies: Tylenol; ll1 ll1 13:44 12:58 Pt is a 44 year old female who presents for sore throat that started 2 days ago. kb Denies cough, congestion, fever. States she was sweating last night so she may have had a fever then. . kb 13:45 12:58 ENT: Nose: is normal, Mouth: is normal, Posterior pharynx: is normal, kb kb
--- NOTE | 2024-05-04 13:45 | ER ---
Nurse's Notes [facility] Name: Hillary Mcclain Age: 44 yrs Sex: Female : 1980 Arrival Date: 05/04/2024 Time: 12:32 Bed IW6 Private MD: Diagnosis: Acute pharyngitis, unspecified Presentation: 05/04 12:54 Chief complaint: Patient states: Sore throat for 3 days. Fatigue, weak, sweating last ll1 night. No fever. Coronavirus screen: Client denies travel out of the [place] in the last 14 days. fatigue, headache, sore throat, Client presents with at least one sign or symptom that may indicate coronavirus-19. Standard/surgical mask placed on the client. Ebola Screen: Patient denies travel to an Ebola-affected area in the 21 days before illness onset. Initial Sepsis Screen: Does the patient meet any 2 criteria? No. Patient's initial sepsis screen is negative. Does the patient have a suspected source of infection? No. Patient's initial sepsis screen is negative. Risk Assessment: Do you want to hurt yourself or someone else? Patient reports no desire to harm self or others. Onset of symptoms was May 02, 2024. 12:54 Method Of Arrival: Ambulatory ll1 12:54 Acuity: TATYANA 4 ll1 Triage Assessment: 12:54 General: Appears uncomfortable, Behavior is calm, cooperative, appropriate for age, ll1 Reports chills for fatigue for. EENT: Reports pain when swallowing. Neuro: Reports weakness. 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 - Infectious Disease History:: Denies. - Social history:: Smoking status: Reported history of juuling and/or vaping. Patient denies any tobacco usage or history of. Screenin:48 [facility] ED Fall Risk Assessment (Adult) History of falling in the last 3 months, ll1 including since admission No falls in past 3 months (0 pts) Confusion or Disorientation No (0 pts) Intoxicated or Sedated No (0 pts) Impaired Gait No (0 pts) Mobility Assist Device Used No (0 pt) Altered Elimination No (0 pt) Score/Fall Risk Level 0 - 2 = Low Risk Maintained a safe environment, Hourly rounding (assess needs \T\ fall precautionary measures) done. Abuse screen: Denies threats or abuse. Nutritional screening: No deficits noted. Tuberculosis screening: No symptoms or risk factors identified. Assessment: 13:48 Reassessment: No changes from previously documented assessment. Patient and/or family ll1 updated on plan of care and expected duration. Pain level reassessed. Vital Signs: 12:54 BP 121 / 91; Pulse 80; Resp 17; Temp 97.1; Pulse Ox 100% ; Weight 63.5 kg; Height 5 ft. ll1 8 in. ; 12:54 Body Mass Index 21.29 (63.50 kg, 172.72 cm) ll1 ED Course: 12:34 Patient arrived in ED. im 12:49 Arm band placed on. ll1 12:56 Triage completed. 1 12:57 Joanna Valles FNP-C is [facility]. kb 12:57 Amarjit Knowles MD is Attending Physician. kb 13:07 SARS-COV-2 Antigen Rapid Sent. ll1 13:07 Strep Sent. ll1 13:07 Flu Sent. ll1 13:49 Patient has correct armband on for positive identification. Bed in low position. ll1 Provided Education on: return to ED for worsening symptoms. Cardiac monitoring not applicable on this patient. 13:49 No provider procedures requiring assistance completed. Patient did not have IV access ll1 during this emergency room visit. Administered Medications: No medications were administered Medication: 13:49 VIS not applicable for this client. 1 Outcome: 13:44 Discharge ordered by . kb 13:49 Discharged to home ambulatory, ll1 13:49 Condition: stable 13:49 Discharge instructions given to patient, Instructed on discharge instructions, follow up and referral plans. Demonstrated understanding of instructions, follow-up care, 13:49 Patient left the ED. ll1 Signatures: Joanna Valles FNP-C FNP-Ckb Lewis, Lynsay, RN RN ll1 Charity Krishnamurthy im Corrections: (The following items were deleted from the chart) 12:57 12:49 Allergies: ACETAMINOPHEN; ll1 ll1 12:57 12:49 Allergies: Tylenol; ll1 ll1
[2024-05-04 14:16] VITALS: BP 121/91; TEMP 97.1; O2SAT 100
== END 2024-05-04 13:49 | disposition home or self-care (01) ==
LOC: ER 12:32
DX: J02.9 Acute pharyngitis, unspecified (principal); Z11.52 Encounter for screening for COVID-19
CPT/HCPCS: 36415; 87070; 87081; 87804; 87811; 99283